=== PATIENT | male | born 1935 | race Caucasian/White ===

== ENCOUNTER 2019-12-01 16:19 | Emergency (ER) | payer MEDICARE ==
[~2019-12-01] VITALS: Ht 172.7 cm; Wt 72.6 kg
[~2019-12-01 16:19] MED LIST: ASPI325 PO; ASPI325EC PO; BRIM.15SO; CHOL10002 PO; CLOP75 PO; COMBIGAN BOTHEYES; CRO-MAN-ZIN TA1 EACH PO; CYCL10 PO; FISH1000 PO; GLIP5 PO; HYDACE5; HYDACE5 PO; INSU7030P SC; INSULANI SUBQ; INSULANPEN SC; ISOMON30 PO; LATA.005SO LEFTEYE; LATA.005SO OD; LATA.005SO OP; LISI20 PO; METF500 PO; METO50 PO; METO50ER PO; MULVITMIND PO; NITRSPRAY SL; Norco 5-325 Ta1 EACH PO; PRODEXEL PO; RXCYCL10 PO; RXHYDACE PO; SIMV10 PO; TAMS.4ER PO; TIMO.25OPS OD; TIMO.25OPS OP; Zithromax250 MG PO; [UNRECOGNIZED DRUG - OTHER]; [UNRECOGNIZED DRUG - OTHER]
[2019-12-01 16:48] LABS: BASOPHILS ABSOLUTE AUTO 0.02 K/mm3 (0.00-0.23); BASOPHILS PERCENT AUTO 0 % (0-2); EOSINOPHILS ABSOLUTE AUTO 0.07 K/mm3 (0.00-0.68); EOSINOPHILS PERCENT AUTO 1 % (0-6); Hematocrit 44.6 % (37.0-53.0); IMMATURE GRAN ABSOLUTE AUTO 0.16 K/mm3 (0.00-0.10); IMMATURE GRAN PERCENT AUTO 2 % (0-1); LYMPHOCYTES ABSOLUTE AUTO 1.29 K/mm3 (0.84-5.20); LYMPHOCYTES PERCENT AUTO 15 % (21-46); MONOCYTES ABSOLUTE AUTO 0.47 K/mm3 (0.16-1.47); MONOCYTES PERCENT AUTO 6 % (4-13); Mean Corpuscular HGB 30.4 pg (26.0-34.0); Mean Corpuscular HGB Conc 33.6 g/dL (31.5-36.5); Mean Corpuscular Volume 90 fL (80-100); Mean Platelet Volume 10.1 fL (9.1-12.4); NEUTROPHILS ABSOLUTE AUTO 6.58 K/mm3 (1.96-9.15); NEUTROPHILS PERCENT AUTO 77 % (41-73); Platelet Count 172 K/mm3 (150-400); RDW Coefficient Variation 12.5 % (11.7-14.2); RDW Standard Deviation 41.1 fL (35.1-46.3); Red Blood Cell Count 4.94 M/mm3 (4.30-5.90); White Blood Cell Count 8.59 K/mm3 (4.00-11.30)
[2019-12-01 17:15] LABS: Alanine Aminotransfer (ALT/SGP 25 U/L (12-78); Albumin, Blood 3.6 g/dL (3.4-5.0); Albumin/Globulin Ratio 0.9 (0.8-1.8); Alk Phos 64 U/L (50-136); Anion Gap 3 mmol/L (6-16); Aspartate Aminotrans (AST/SGOT 28 U/L (12-37); Bilirubin, Total 0.4 mg/dL (0.1-1.0); Blood Urea Nitrogen 33 mg/dL (8-24); Bun/Creatinine Ratio 20.8 (12.0-20.0); CO2, Blood 26 mmol/L (21-32); Calcium, Blood 8.7 mg/dL (8.5-10.1); Chloride, Blood 109 mmol/L (98-108); Creatinine, Blood 1.59 mg/dL (0.60-1.20); Globulin, Blood 3.9 g/dL (2.2-4.0); Glomerular Filtration Rate 45 (60-); Glucose, Blood 277 mg/dL (70-99); Potassium, Blood 4.6 mmol/L (3.5-5.5); Sodium, Blood 138 mmol/L (136-145); Total Protein, Blood 7.5 g/dL (6.4-8.2); Troponin I <0.015 ng/mL (0.000-0.040)
[2019-12-01] MEDS ORDERED: Aspir 8181 MG PO (19:48)
[2019-12-01] MEDS ORDERED: CLON.1 (19:49)
[2019-12-01] MEDS ORDERED: Isosorbide Mono30 MG PO (19:49)
[2019-12-01] MEDS ORDERED: Humalog Mi100 UNIT/4 SC (19:50)
[2019-12-01] MEDS ORDERED: CALCIUM 600 +1 EA11 PO (19:53)
[2019-12-01] MEDS ORDERED: Roxicodone5 MG PO (21:12)
== END 2019-12-01 21:30 | disposition home or self-care (01) ==
LOC: ER 16:19
PROVIDERS: Physician Assistant
DX: S22.42XA Multiple fractures of ribs, left side, initial encounter for closed fracture (principal); E11.9 Type 2 diabetes mellitus without complications; Z88.5 Allergy status to narcotic agent; Z88.8 Allergy status to other drugs, medicaments and biological substances; Z79.82 Long term (current) use of aspirin; Z79.899 Other long term (current) drug therapy; W55.12XA Struck by horse, initial encounter
CPT/HCPCS: 36415; 71046; 71260; 74177; 80053; 84484; 85025; 93005; 93010; 96374; 96375; 99284-25; A9270; J1170; J3010; Q9967

== ENCOUNTER 2021-11-28 19:50 | Inpatient (IN) | payer MEDICARE ==
[~2021-11-28] VITALS: Ht 172.7 cm; Wt 74.2 kg
[~2021-11-28 19:50] MED LIST changes: +Aspir 8181 MG PO; +CALCIUM 600 +1 EA11 PO; +CLON.1 PO; +Humalog Mi100 UNIT/4 SC; +ISODIN10 PO; +Roxicodone5 MG PO
[2021-11-28] MEDS ORDERED: TRESIBA FL100 UNIT/2 SC (20:23)
[2021-11-28] MEDS ORDERED: HUMALOG KW100 UNIT/1 SC (20:23)
[2021-11-28] MEDS ORDERED: FERREX 150150 M1 PO (20:25)
[2021-11-28 20:53] LABS: BASOPHILS ABSOLUTE AUTO 0.03 K/mm3 (0.00-0.23); BASOPHILS PERCENT AUTO 0 % (0-2); EOSINOPHILS ABSOLUTE AUTO 0.06 K/mm3 (0.00-0.68); EOSINOPHILS PERCENT AUTO 1 % (0-6); Hemoglobin 14.8 g/dL (13.5-17.5); IMMATURE GRAN ABSOLUTE AUTO 0.07 K/mm3 (0.00-0.10); IMMATURE GRAN PERCENT AUTO 1 % (0-1); LYMPHOCYTES ABSOLUTE AUTO 1.69 K/mm3 (0.84-5.20); LYMPHOCYTES PERCENT AUTO 23 % (21-46); MONOCYTES ABSOLUTE AUTO 0.57 K/mm3 (0.16-1.47); MONOCYTES PERCENT AUTO 8 % (4-13); Mean Corpuscular HGB 30.6 pg (26.0-34.0); Mean Corpuscular HGB Conc 34.4 g/dL (31.5-36.5); Mean Corpuscular Volume 89 fL (80-100); Mean Platelet Volume 10.2 fL (9.1-12.4); NEUTROPHILS PERCENT AUTO 67 % (41-73); Platelet Count 175 K/mm3 (150-400); RDW Coefficient Variation 12.5 % (11.7-14.2); RDW Standard Deviation 40.9 fL (35.1-46.3); Red Blood Cell Count 4.84 M/mm3 (4.30-5.90); White Blood Cell Count 7.22 K/mm3 (4.00-11.30)
[2021-11-28 21:00] LABS: International Normalized Ratio 0.96; Prothrombin Time Results 10.1 Sec (9.7-11.5)
[2021-11-28 21:02] LABS: Albumin, Blood 3.3 g/dL (3.4-5.0); Albumin/Globulin Ratio 0.9 (0.8-1.8); Bilirubin, Total 0.3 mg/dL (0.1-1.0); Bun/Creatinine Ratio 13.7 (12.0-20.0); Calcium, Blood 8.5 mg/dL (8.5-10.1); Creatinine, Blood 1.75 mg/dL (0.60-1.20); Globulin, Blood 3.7 g/dL (2.2-4.0); Potassium, Blood 4.1 mmol/L (3.5-5.5)
--- NOTE | 2021-11-28 22:40 | NUR ---
TRANSFER NOTE REPORT FROM ATIYA FERGUSON RN. PT TO FLOOR BY WC AND STANDS TO TRANSFER TO BED. GAIT STEADY. STANDING WEIGHT OBTAINED. PT GRANDDAUGHTER WITH HIM TO PROVIDE ADMISSION HX. PT'S DAUGHTER, WHO MAKES HEALTHCARE DECISIONS, WILL BE STAYING WITH HIM. PT AND DAUGHTER ORIENTED TO ROOM AND CALL LIGHT. BED IN LOWEST POSITION. CALL LIGHT IN REACH.
[2021-11-28] MEDS ORDERED: Amlodipine Bes2.5 MG PO (23:04)
[2021-11-29 03:12] LABS: Source, Urine Clean Catch
[2021-11-29 03:21] LABS: Appearance, Urine Clear (Clear); Bilirubin, Urine Neg (Neg); Blood, Urine Neg (Neg); Color, Urine Yellow (P-Yellow); Glucose Qualitative, Urine 2+ (Neg); Ketones, Urine Neg (Neg); Leukocyte Esterase, Urine Neg (Neg); Nitrite, Urine Neg (Neg); Protein, Urine 1+ (Neg); Urobilinogen, Urine NORM (Normal)
--- NOTE | 2021-11-29 05:21 | NUR ---
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 PT IS ALERT AND ORIENTED TO SELF, SITUATION, SURROUNDINGS, AND FAMILY BUT UNSURE OF YEAR. PLEASANT AND COOPERATIVE WITH CARE. FORGETFUL AT TIMES. NO COMPLAINTS OF HEADACHE OR CHEST PAIN. PT BP SLIGHTLY ELEVATED AT 172/76 - ASYMPTOMATIC. PT STEADY ON FEET WITH NO LOWER EXTREMITY WEAKNESS. BP IMPROVED TO 150/67 THIS AM. PT STARTED ON ASPIRIN, PLAVIX, AND LOVENOX THIS SHIFT. NO OTHER CONCERNS THIS SHIFT.
[2021-11-29 05:23] LABS: BASOPHILS ABSOLUTE AUTO 0.03 K/mm3 (0.00-0.23); BASOPHILS PERCENT AUTO 0 % (0-2); EOSINOPHILS ABSOLUTE AUTO 0.12 K/mm3 (0.00-0.68); EOSINOPHILS PERCENT AUTO 2 % (0-6); Hematocrit 41.3 % (37.0-53.0); Hemoglobin 14.1 g/dL (13.5-17.5); IMMATURE GRAN ABSOLUTE AUTO 0.04 K/mm3 (0.00-0.10); IMMATURE GRAN PERCENT AUTO 1 % (0-1); LYMPHOCYTES ABSOLUTE AUTO 1.48 K/mm3 (0.84-5.20); LYMPHOCYTES PERCENT AUTO 22 % (21-46); MONOCYTES ABSOLUTE AUTO 0.62 K/mm3 (0.16-1.47); MONOCYTES PERCENT AUTO 9 % (4-13); Mean Corpuscular HGB 30.6 pg (26.0-34.0); Mean Corpuscular HGB Conc 34.1 g/dL (31.5-36.5); Mean Corpuscular Volume 90 fL (80-100); Mean Platelet Volume 9.8 fL (9.1-12.4); NEUTROPHILS ABSOLUTE AUTO 4.49 K/mm3 (1.96-9.15); NEUTROPHILS PERCENT AUTO 66 % (41-73); Platelet Count 162 K/mm3 (150-400); RDW Coefficient Variation 12.5 % (11.7-14.2); RDW Standard Deviation 40.9 fL (35.1-46.3); Red Blood Cell Count 4.61 M/mm3 (4.30-5.90); White Blood Cell Count 6.78 K/mm3 (4.00-11.30)
[2021-11-29 05:51] LABS: Albumin, Blood 3.1 g/dL (3.4-5.0); Albumin/Globulin Ratio 0.9 (0.8-1.8); Bilirubin, Total 0.4 mg/dL (0.1-1.0); Bun/Creatinine Ratio 14.6 (12.0-20.0); Calcium, Blood 8.3 mg/dL (8.5-10.1); Creatinine, Blood 1.71 mg/dL (0.60-1.20); Globulin, Blood 3.3 g/dL (2.2-4.0); Potassium, Blood 4.2 mmol/L (3.5-5.5); Total Protein, Blood 6.4 g/dL (6.4-8.2)
--- NOTE | 2021-11-29 18:53 | NUR ---
SHIFT SUMMARY PT ADMITTED FOR R HAND WEAKNESS THAT HAS GREATLY IMPROVED THIS SHIFT. PT NOW HAS NEARLY EQUAL STRENGTH IN HIS HANDS. HE IS FORGETFUL BUT PLEASANT. FRACTIONATION SUPERVISOR IN ROOM TO HELP MAKE MEDICAL DECISIONS. PT TO HAVE MRI. PT WAS BRADYCARDIC THIS AM BUT HAS SINCE IMPROVED. ELEVATED T-WAVES APPEARED THIS AFTERNOON ON TELEMETRY. EKG DONE AND SHOWED NORMAL SINUS WITH SEPTAL INFARCT OF UNKNOWN AGE. PT DENIES CHEST PAIN/PRESSURE/PALPITATIONS. WORKED WITH P.T/O.T. AND DID WELL. VSS.
--- NOTE | 2021-11-30 08:38 | NUR ---
SUMMARY PT REPORTS R HAND AND ARM CONTINUE TO IMPROVE IN SENSATION AND STRENGTH. DAUGHTER REMAINS AT BEDSIDE AND IS VWERY HELPFUL TO PT,STAFF, AND IS SUPPORTIVE OF CARE PROVIDED.
[2021-11-30] MEDS ORDERED: ZOCOR20 MG PO (15:56)
[2021-11-30] MEDS ORDERED: CLOP75 PO (15:57)
--- NOTE | 2021-11-30 17:39 | NUR ---
DISCHARGE SUMMARY PT AxOx4 WITH INTERM CONFUSION AND VERY [place]. PATIENT AND HIS DAUGHTER, PRISCILLA IN ROOM. PT HAD SHOWER THIS AM. DENIES ANY PAIN. PER TASSEL CLIPPER, TELE RUNNING SR 68. PT WENT FOR MRI HEAD TODAY. VITALS REVIEWED. PT DC'ING TO HOME WITH DAUGHTER AND HOME HEALTH. DC INSTRUCTIONS DISCUSSED INCLUDING DC MED LIST, FOLLOW UP APPTS AND HH REFERRAL. PT AND DAUGHTER VERBALIZE UNDERSTANDING. DENIES FURTHER QUESTIONS AT THIS TIME. PT SAFELY ESCORTED OUT VIA WC WITH DENTAL AMALGAM PROCESSOR AND DAUGHTER.
--- NOTE | 2021-12-03 11:40 | NUR ---
Received referral from nurse healthcare associate (Rafi Gomez) today- 12/03/2021. Patient was admitted to [facility] on 11/28/2021 due to stroke/limb ataxia. Patient discharged over the weekend- 11/30/2021 with orders for home health. Per referral today, patient elected [facility]. As patient discharged over the weekend, this copy writer did not contact patient at home to confirm the above. All supporting documentation for referral (face sheet, face to face, med list, H&P, discharge summary, and most recent PT notes) was sent to [facility] for review. No further interventions required. Magi Lopez Referral Liaison
== END 2021-11-30 17:27 | disposition home or self-care (01) | DRG 65 ==
LOC: ER 19:50 → MEDS 19:51 → ER 22:09 → MEDS 22:09
PROVIDERS: Physician Assistant; Student in an Organized Health Care Education/Training Program; ADMIT Internal Medicine
DX: I63.9 Cerebral infarction, unspecified (principal); G81.91 Hemiplegia, unspecified affecting right dominant side; I10 Essential (primary) hypertension; E78.5 Hyperlipidemia, unspecified; Z85.46 Personal history of malignant neoplasm of prostate; Z85.038 Personal history of other malignant neoplasm of large intestine; Z79.899 Other long term (current) drug therapy; Z88.8 Allergy status to other drugs, medicaments and biological substances; Z88.5 Allergy status to narcotic agent; I65.02 Occlusion and stenosis of left vertebral artery
CPT/HCPCS: 36415; 70450; 70496; 70498; 70551; 80053; 82947; 85025; 85610; 85730; 93005; 93010; 93306; 96372; 97110; 97162; 99285-25; A9270; G0378; J1650; J7030; Q9967

== ENCOUNTER → 2021-12-04 | Outpatient (CLI) | payer MEDICARE ==
[~2021-12-04] MED LIST changes: +Amlodipine Bes2.5 MG PO; +FERREX 150150 M1 PO; +HUMALOG KW100 UNIT/1 SC; +TRESIBA FL100 UNIT/2 SC; +ZOCOR20 MG PO
[2021-12-04 19:33] LABS: Creatinine Urine 86.2 mg/dL (27.00-270.00); Protein, Urine Quantitative 19.6 mg/dL (0.0-11.9)
== END | disposition home or self-care (01) ==
LOC: LAB SHORT 17:11
PROVIDERS: Internal Medicine Nephrology
DX: N18.4 Chronic kidney disease, stage 4 (severe) (principal); D63.1 Anemia in chronic kidney disease; N25.81 Secondary hyperparathyroidism of renal origin; E55.9 Vitamin D deficiency, unspecified; E78.00 Pure hypercholesterolemia, unspecified; R76.9 Abnormal immunological finding in serum, unspecified; R94.5 Abnormal results of liver function studies; R94.6 Abnormal results of thyroid function studies
CPT/HCPCS: 81050; 82108; 82570; 84156

== ENCOUNTER 2021-12-10 19:48 | Inpatient (IN) | payer MEDICARE ==
[~2021-12-10] VITALS: Ht 180.3 cm; Wt 95.2 kg
[2021-12-10 20:41] LABS: BASOPHILS ABSOLUTE AUTO 0.02 K/mm3 (0.00-0.23); BASOPHILS PERCENT AUTO 0 % (0-2); EOSINOPHILS ABSOLUTE AUTO 0.08 K/mm3 (0.00-0.68); EOSINOPHILS PERCENT AUTO 1 % (0-6); Hematocrit 44.2 % (37.0-53.0); Hemoglobin 15.2 g/dL (13.5-17.5); IMMATURE GRAN ABSOLUTE AUTO 0.04 K/mm3 (0.00-0.10); IMMATURE GRAN PERCENT AUTO 1 % (0-1); LYMPHOCYTES ABSOLUTE AUTO 1.37 K/mm3 (0.84-5.20); LYMPHOCYTES PERCENT AUTO 18 % (21-46); MONOCYTES ABSOLUTE AUTO 0.66 K/mm3 (0.16-1.47); MONOCYTES PERCENT AUTO 9 % (4-13); Mean Corpuscular HGB 30.6 pg (26.0-34.0); Mean Corpuscular HGB Conc 34.4 g/dL (31.5-36.5); Mean Corpuscular Volume 89 fL (80-100); Mean Platelet Volume 9.9 fL (9.1-12.4); NEUTROPHILS ABSOLUTE AUTO 5.38 K/mm3 (1.96-9.15); NEUTROPHILS PERCENT AUTO 71 % (41-73); Platelet Count 185 K/mm3 (150-400); RDW Coefficient Variation 12.6 % (11.7-14.2); RDW Standard Deviation 41.1 fL (35.1-46.3); Red Blood Cell Count 4.96 M/mm3 (4.30-5.90); White Blood Cell Count 7.55 K/mm3 (4.00-11.30)
[2021-12-10 20:59] LABS: Albumin, Blood 3.4 g/dL (3.4-5.0); Albumin/Globulin Ratio 0.8 (0.8-1.8); Bilirubin, Total 0.3 mg/dL (0.1-1.0); Bun/Creatinine Ratio 18.3 (12.0-20.0); Creatinine, Blood 1.86 mg/dL (0.60-1.20); Globulin, Blood 4.1 g/dL (2.2-4.0); Potassium, Blood 5.3 mmol/L (3.5-5.5); Total Protein, Blood 7.5 g/dL (6.4-8.2)
[2021-12-10 23:49] LABS: Base Excess Venous 1.4 mmol/L; Bicarbonate Venous 25.4 mmol/L (24.0-30.0); PCO2 Venous 40.8 mmHg (38-42); PO2 Venous 68.5 mmHg (38-42); pH Blood Venous 7.41 (7.34-7.37)
--- NOTE | 2021-12-11 02:27 | NUR ---
ADMISSION NOTE/SHIFT SUMMARY PATIENT ADMITTED ON MEDICAL UNIT AROUND 01:30 DAUGHTER BY THE BEDSIDE DURING ASSESSEMENT.PT AOX2 WITH FORGETFULLNESS COULD NOT REMEMBER HIS BIRTHDAY .SKIN INTACT LUNGS SOUND CLEAR DELFINO.ABD SOFT NONTENDER LAST BM 12/10/21.ASSIST WITH CARE DUE TO RIGHTSIDE WEAKNESS.
[2021-12-11 05:44] LABS: BASOPHILS ABSOLUTE AUTO 0.04 K/mm3 (0.00-0.23); BASOPHILS PERCENT AUTO 1 % (0-2); EOSINOPHILS PERCENT AUTO 2 % (0-6); Hematocrit 42.6 % (37.0-53.0); Hemoglobin 14.7 g/dL (13.5-17.5); IMMATURE GRAN ABSOLUTE AUTO 0.03 K/mm3 (0.00-0.10); IMMATURE GRAN PERCENT AUTO 1 % (0-1); LYMPHOCYTES ABSOLUTE AUTO 1.34 K/mm3 (0.84-5.20); LYMPHOCYTES PERCENT AUTO 21 % (21-46); MONOCYTES ABSOLUTE AUTO 0.55 K/mm3 (0.16-1.47); MONOCYTES PERCENT AUTO 9 % (4-13); Mean Corpuscular HGB 30.9 pg (26.0-34.0); Mean Corpuscular HGB Conc 34.5 g/dL (31.5-36.5); Mean Corpuscular Volume 90 fL (80-100); Mean Platelet Volume 9.7 fL (9.1-12.4); NEUTROPHILS ABSOLUTE AUTO 4.31 K/mm3 (1.96-9.15); NEUTROPHILS PERCENT AUTO 68 % (41-73); Platelet Count 161 K/mm3 (150-400); RDW Coefficient Variation 12.5 % (11.7-14.2); RDW Standard Deviation 41.3 fL (35.1-46.3); Red Blood Cell Count 4.75 M/mm3 (4.30-5.90); White Blood Cell Count 6.37 K/mm3 (4.00-11.30)
[2021-12-11 06:16] LABS: Bun/Creatinine Ratio 18.3 (12.0-20.0); Calcium, Blood 8.6 mg/dL (8.5-10.1); Creatinine, Blood 1.75 mg/dL (0.60-1.20); Potassium, Blood 4.8 mmol/L (3.5-5.5)
--- NOTE | 2021-12-11 08:01 | NUR ---
SUSAN wolfe handoff of patient care from SUSAN Braun Patient was in room awake, lying in bed. He did not have any requests
--- NOTE | 2021-12-11 18:01 | NUR ---
Patient was alert and orient. He was very pleasant and in good spirits. Physical/Occupational/Speech therapy worked with this patient this morning. He is assist of 1 with transers, continent of bowel and bladder and had 3 BMs today. Patient also had family in with him to ensure his safety. He was compliant with medications and he had no complaints of pain. He will be transferred soon to [facility] in [place] whenever there is a bed opened. Cont to monitor this patient
[2021-12-11 21:07] LABS: Adenovirus Not Detected (NOT DETECT); Coronavirus 229E Not Detected (NOT DETECT); Coronavirus HKU1 Not Detected (NOT DETECT)
[2021-12-11 21:08] LABS: Bordetella pertussis Not Detected (NOT DETECT); Chlamydophila pneumoniae Not Detected (NOT DETECT); Coronavirus NL63 Not Detected (NOT DETECT); Coronavirus OC43 Not Detected (NOT DETECT); Human Metapneumovirus Not Detected (NOT DETECT); Human Rhinovirus/Enterovirus Not Detected (NOT DETECT); Influenza A/2009-H1 Not Detected (NOT DETECT); Influenza A/H1 Not Detected (NOT DETECT); Influenza A/H3 Not Detected (NOT DETECT); Influenza B Not Detected (NOT DETECT); Mycoplasma pneumoniae Not Detected (NOT DETECT); Parainfluenza Virus 1 Not Detected (NOT DETECT); Parainfluenza Virus 2 Not Detected (NOT DETECT); Parainfluenza Virus 3 Not Detected (NOT DETECT); Parainfluenza Virus 4 Not Detected (NOT DETECT); Respiratory Syncytial Virus Not Detected (NOT DETECT); SARS-Cov-2 (COVID-19), BioFire Not Detected (NOT DETECT)
--- NOTE | 2021-12-11 21:23 | NUR ---
REGULAR COVID TEST NOT AVAILABLE TILL AM, RESPIRATORY PANEL DONE AND NEGATIVE COVID RESULTS FAXED TO [facility] [phone].
--- NOTE | 2021-12-12 05:50 | NUR ---
SHIFT SUMMARY PATIENT ALERT AND PLESANT ASSISTED TO THE BATHROOM SEVERAL TIMES ABLE TO WALK WITH ASSIST X1 WITH WALKER.PT WAITING TO BE TRANSFER TO [facility] NEGATIVE COVID TEST WAS FAX.DAUGHTER BY THE BED SIDE.BED ALARM ON FOR SAFETY
[2021-12-12 05:58] LABS: Albumin, Blood 3.1 g/dL (3.4-5.0); Anion Gap 6 mmol/L (6-16); Blood Urea Nitrogen 38 mg/dL (8-24); Bun/Creatinine Ratio 18.3 (12.0-20.0); CO2, Blood 26 mmol/L (21-32); Calcium, Blood 8.8 mg/dL (8.5-10.1); Chloride, Blood 104 mmol/L (98-108); Creatinine, Blood 2.08 mg/dL (0.60-1.20); Glomerular Filtration Rate 31 (60-); Glucose, Blood 209 mg/dL (70-99); Phosphorus, Blood 3.6 mg/dL (2.5-4.9); Potassium, Blood 5.4 mmol/L (3.5-5.5); Sodium, Blood 136 mmol/L (136-145)
--- NOTE | 2021-12-12 07:45 | NUR ---
SUSAN wolfe handoff of patient care from SUSAN Shanks Patient was in bed asleep, He did not appear to be in any distress. Family was at bedside
--- NOTE | 2021-12-12 18:01 | NUR ---
Patient was alert and orient, He is assist x1 to bathroom, he was continent of bowel and bladder and had 2 med BM. Patient also worked with OT/PT. He had no complaints of pain. Family remained at bedside to assist. He will be transferring to [facility] in the next half hour.
--- NOTE | 2021-12-12 18:48 | NUR ---
RN called and talked to Dev RN at [facility] and gave report on patient's condition and current status prior to transferring.
--- NOTE | 2021-12-12 20:35 | NUR ---
PATIENT TAKEN BY TRANSPORT
== END 2021-12-12 20:30 | disposition short-term general hospital (02) | DRG 65 ==
LOC: ER 19:48 → MEDS 19:49
PROVIDERS: Emergency Medicine; Internal Medicine; Physician Assistant; Student in an Organized Health Care Education/Training Program; ADMIT Family Medicine
DX: I63.9 Cerebral infarction, unspecified (principal); N17.9 Acute kidney failure, unspecified; G81.91 Hemiplegia, unspecified affecting right dominant side; E11.22 Type 2 diabetes mellitus with diabetic chronic kidney disease; E78.5 Hyperlipidemia, unspecified; I12.9 Hypertensive chronic kidney disease with stage 1 through stage 4 chronic kidney disease, or unspecified chronic kidney disease; Z88.5 Allergy status to narcotic agent; Z85.46 Personal history of malignant neoplasm of prostate; Z85.038 Personal history of other malignant neoplasm of large intestine; R29.810 Facial weakness; I65.23 Occlusion and stenosis of bilateral carotid arteries; I65.03 Occlusion and stenosis of bilateral vertebral arteries; Z20.822 Contact with and (suspected) exposure to COVID-19; Z88.8 Allergy status to other drugs, medicaments and biological substances; Z79.899 Other long term (current) drug therapy; Z79.82 Long term (current) use of aspirin; N18.9 Chronic kidney disease, unspecified
CPT/HCPCS: 0202U; 36415; 70450; 70496; 70498; 80048; 80053; 80069; 82803; 82947; 83036; 85025; 92610; 93005; 93010; 97110; 97162; 97166; 97530; 97535; 99285-25; A9270; J1650; J1815; Q9967

== ENCOUNTER 2022-10-16 12:58 | Emergency (ER) | payer MEDICARE, OTHER ==
[~2022-10-16] VITALS: Ht 172.7 cm; Wt 74.8 kg
[2022-10-16 14:08] LABS: Base Excess Venous -0.8 mmol/L; Bicarbonate Venous 22.7 mmol/L (24.0-30.0); PCO2 Venous 50.8 mmHg (38-42); pH Blood Venous 7.31 (7.34-7.37)
[2022-10-16 14:18] LABS: BASOPHILS ABSOLUTE AUTO 0.04 K/mm3 (0.00-0.23); BASOPHILS PERCENT AUTO 1 % (0-2); EOSINOPHILS ABSOLUTE AUTO 0.15 K/mm3 (0.00-0.68); EOSINOPHILS PERCENT AUTO 2 % (0-6); Hematocrit 42.1 % (37.0-53.0); Hemoglobin 13.9 g/dL (13.5-17.5); IMMATURE GRAN PERCENT AUTO 1 % (0-1); LYMPHOCYTES ABSOLUTE AUTO 1.73 K/mm3 (0.84-5.20); LYMPHOCYTES PERCENT AUTO 22 % (21-46); MONOCYTES PERCENT AUTO 9 % (4-13); Mean Corpuscular HGB 29.7 pg (26.0-34.0); Mean Corpuscular Volume 90 fL (80-100); NEUTROPHILS ABSOLUTE AUTO 5.07 K/mm3 (1.96-9.15); NEUTROPHILS PERCENT AUTO 65 % (41-73); Platelet Count 186 K/mm3 (150-400); RDW Coefficient Variation 13.1 % (11.7-14.2); RDW Standard Deviation 42.7 fL (35.1-46.3); Red Blood Cell Count 4.68 M/mm3 (4.30-5.90); White Blood Cell Count 7.79 K/mm3 (4.00-11.30)
[2022-10-16 14:27] LABS: Albumin, Blood 3.2 g/dL (3.4-5.0); Albumin/Globulin Ratio 0.9 (0.8-1.8); Bilirubin, Total 0.3 mg/dL (0.1-1.0); Bun/Creatinine Ratio 25.7 (12.0-20.0); Calcium, Blood 8.6 mg/dL (8.5-10.1); Creatinine, Blood 1.52 mg/dL (0.60-1.20); Globulin, Blood 3.6 g/dL (2.2-4.0); Potassium, Blood 4.2 mmol/L (3.5-5.5); Total Protein, Blood 6.8 g/dL (6.4-8.2)
== END 2022-10-16 17:33 | disposition home or self-care (01) ==
LOC: ER 12:58
PROVIDERS: Physician Assistant
DX: E11.65 Type 2 diabetes mellitus with hyperglycemia (principal); E11.10 Type 2 diabetes mellitus with ketoacidosis without coma; Z88.5 Allergy status to narcotic agent; Z88.8 Allergy status to other drugs, medicaments and biological substances; Z79.4 Long term (current) use of insulin; Z79.82 Long term (current) use of aspirin
CPT/HCPCS: 36415; 80053; 82803; 82947; 85025

== ENCOUNTER 2023-08-08 14:23 | Emergency (ER) | payer MEDICARE, OTHER ==
[~2023-08-08] VITALS: Ht 172.7 cm; Wt 74.8 kg
[2023-08-08] MEDS ORDERED: ATOR10 (14:39)
[2023-08-08] MEDS ORDERED: FURO80 (14:39)
[2023-08-08] MEDS ORDERED: Amaryl1 MG PO (14:40)
[2023-08-08] MEDS ORDERED: ALBU2.5V5 (14:40)
[2023-08-08] MEDS ORDERED: TAMS.4ER (14:40)
[2023-08-08 14:47] LABS: BASOPHILS ABSOLUTE AUTO 0.03 K/mm3 (0.00-0.23); BASOPHILS PERCENT AUTO 1 % (0-2); EOSINOPHILS ABSOLUTE AUTO 0.16 K/mm3 (0.00-0.68); EOSINOPHILS PERCENT AUTO 2 % (0-6); Hematocrit 40.7 % (37.0-53.0); Hemoglobin 14.1 g/dL (13.5-17.5); IMMATURE GRAN ABSOLUTE AUTO 0.05 K/mm3 (0.00-0.10); IMMATURE GRAN PERCENT AUTO 1 % (0-1); LYMPHOCYTES ABSOLUTE AUTO 1.82 K/mm3 (0.84-5.20); LYMPHOCYTES PERCENT AUTO 28 % (21-46); MONOCYTES ABSOLUTE AUTO 0.49 K/mm3 (0.16-1.47); MONOCYTES PERCENT AUTO 7 % (4-13); Mean Corpuscular HGB 29.6 pg (26.0-34.0); Mean Corpuscular HGB Conc 34.6 g/dL (31.5-36.5); Mean Corpuscular Volume 85 fL (80-100); Mean Platelet Volume 9.4 fL (9.1-12.4); NEUTROPHILS ABSOLUTE AUTO 4.04 K/mm3 (1.96-9.15); NEUTROPHILS PERCENT AUTO 61 % (41-73); Platelet Count 221 K/mm3 (150-400); RDW Coefficient Variation 13.4 % (11.7-14.2); RDW Standard Deviation 41.4 fL (35.1-46.3); Red Blood Cell Count 4.77 M/mm3 (4.30-5.90); White Blood Cell Count 6.59 K/mm3 (4.00-11.30)
[2023-08-08 15:07] LABS: Albumin, Blood 3.1 g/dL (3.4-5.0); Albumin/Globulin Ratio 0.7 (0.8-1.8); Bilirubin, Total 0.4 mg/dL (0.1-1.0); Calcium, Blood 8.8 mg/dL (8.5-10.1); Creatinine, Blood 1.43 mg/dL (0.60-1.20); Globulin, Blood 4.2 g/dL (2.2-4.0); Potassium, Blood 3.9 mmol/L (3.5-5.5); Total Protein, Blood 7.3 g/dL (6.4-8.2)
[2023-08-08 15:08] LABS: International Normalized Ratio 0.98; Prothrombin Time Results 10.3 Sec (9.7-11.5)
[2023-08-08] MEDS ORDERED: HYDACE25S PR (16:42)
[2023-08-08 17:00] VITALS: BP 144/75
== END 2023-08-08 16:42 | disposition home or self-care (01) ==
LOC: ER 14:23
PROVIDERS: Emergency Medicine
DX: K62.5 Hemorrhage of anus and rectum (principal); K64.8 Other hemorrhoids; Z88.8 Allergy status to other drugs, medicaments and biological substances; Z88.5 Allergy status to narcotic agent; Z79.899 Other long term (current) drug therapy; Z79.82 Long term (current) use of aspirin; Z79.4 Long term (current) use of insulin; E11.9 Type 2 diabetes mellitus without complications
CPT/HCPCS: 74177; 80053; 85025; 85610; 85730; 86850; 86900; 86901; 93005; 93010; 99284-25; Q9967

== ENCOUNTER 2023-11-29 12:32 | Emergency (ER) | payer MEDICARE, OTHER ==
[~2023-11-29] VITALS: Ht 175.3 cm; Wt 72.6 kg
[~2023-11-29 12:32] MED LIST changes: +ALBU2.5V5; +ATOR10; +Amaryl1 MG PO; +FURO80; +HYDACE25S PR; +TAMS.4ER
[2023-11-29 13:56] LABS: BASOPHILS ABSOLUTE AUTO 0.02 K/mm3 (0.00-0.23); BASOPHILS PERCENT AUTO 0 % (0-2); EOSINOPHILS ABSOLUTE AUTO 0.13 K/mm3 (0.00-0.68); EOSINOPHILS PERCENT AUTO 2 % (0-6); Hematocrit 37.7 % (37.0-53.0); Hemoglobin 13.1 g/dL (13.5-17.5); IMMATURE GRAN ABSOLUTE AUTO 0.03 K/mm3 (0.00-0.10); IMMATURE GRAN PERCENT AUTO 0 % (0-1); LYMPHOCYTES ABSOLUTE AUTO 1.39 K/mm3 (0.84-5.20); LYMPHOCYTES PERCENT AUTO 18 % (21-46); MONOCYTES ABSOLUTE AUTO 0.53 K/mm3 (0.16-1.47); MONOCYTES PERCENT AUTO 7 % (4-13); Mean Corpuscular HGB 29.7 pg (26.0-34.0); Mean Corpuscular HGB Conc 34.7 g/dL (31.5-36.5); Mean Corpuscular Volume 86 fL (80-100); Mean Platelet Volume 9.8 fL (9.1-12.4); NEUTROPHILS PERCENT AUTO 72 % (41-73); Platelet Count 201 K/mm3 (150-400); RDW Coefficient Variation 13.2 % (11.7-14.2); RDW Standard Deviation 41.2 fL (35.1-46.3); Red Blood Cell Count 4.41 M/mm3 (4.30-5.90)
[2023-11-29 14:04] LABS: Source, Urine Clean Catch
[2023-11-29 14:33] LABS: Albumin, Blood 3.1 g/dL (3.4-5.0); Albumin/Globulin Ratio 0.8 (0.8-1.8); Bilirubin, Total 0.5 mg/dL (0.1-1.0); Bun/Creatinine Ratio 17.4 (12.0-20.0); Calcium, Blood 8.8 mg/dL (8.5-10.1); Creatinine, Blood 1.44 mg/dL (0.60-1.20); Potassium, Blood 4.1 mmol/L (3.5-5.5); Total Protein, Blood 7.1 g/dL (6.4-8.2)
[2023-11-29 14:48] LABS: Appearance, Urine Clear (Clear); Bilirubin, Urine Neg (Neg); Blood, Urine Neg (Neg); Color, Urine Yellow (P-Yellow); Glucose Qualitative, Urine 4+ (Neg); Ketones, Urine Neg (Neg); Leukocyte Esterase, Urine Neg (Neg); Nitrite, Urine Neg (Neg); Protein, Urine 2+ (Neg); Urobilinogen, Urine NORM (Normal)
[2023-11-29 15:10] LABS: Bacteria Rare /hpf; Red Blood Cells, Urine 0-2 /hpf (0-2); Squamous Epithelial Cells Rare /hpf (Few); White Blood Cells, Urine 0-2 /hpf (0-5)
[2023-11-29 15:52] VITALS: BP 117/55
== END 2023-11-29 18:45 | disposition home or self-care (01) ==
LOC: ER 12:32
PROVIDERS: Student in an Organized Health Care Education/Training Program
DX: R53.1 Weakness (principal); K62.5 Hemorrhage of anus and rectum; E11.22 Type 2 diabetes mellitus with diabetic chronic kidney disease; N18.9 Chronic kidney disease, unspecified; H40.9 Unspecified glaucoma; Z88.8 Allergy status to other drugs, medicaments and biological substances; Z88.5 Allergy status to narcotic agent; Z87.19 Personal history of other diseases of the digestive system; Z79.82 Long term (current) use of aspirin; Z79.51 Long term (current) use of inhaled steroids; Z79.84 Long term (current) use of oral hypoglycemic drugs; Z79.4 Long term (current) use of insulin; Z79.899 Other long term (current) drug therapy; Z79.02 Long term (current) use of antithrombotics/antiplatelets
CPT/HCPCS: 70450; 80053; 81001; 85025; 86850; 86900; 86901; 93005; 93010; 99284-25

== ENCOUNTER 2024-03-15 13:01 | Emergency (ER) | payer OTHER, MEDICARE ==
[~2024-03-15] VITALS: Ht 175.3 cm; Wt 72.1 kg
[~2024-03-15 13:01] MED LIST changes: -FURO80; +FURO80 PO
[2024-03-15] MEDS ORDERED: NITR.4SL SL (13:25)
[2024-03-15 13:43] LABS: BASOPHILS ABSOLUTE AUTO 0.02 K/mm3 (0.00-0.23); BASOPHILS PERCENT AUTO 0 % (0-2); EOSINOPHILS ABSOLUTE AUTO 0.08 K/mm3 (0.00-0.68); EOSINOPHILS PERCENT AUTO 1 % (0-6); Hematocrit 42.8 % (37.0-53.0); Hemoglobin 14.8 g/dL (13.5-17.5); IMMATURE GRAN ABSOLUTE AUTO 0.03 K/mm3 (0.00-0.10); IMMATURE GRAN PERCENT AUTO 1 % (0-1); LYMPHOCYTES ABSOLUTE AUTO 1.64 K/mm3 (0.84-5.20); LYMPHOCYTES PERCENT AUTO 25 % (21-46); MONOCYTES ABSOLUTE AUTO 0.48 K/mm3 (0.16-1.47); MONOCYTES PERCENT AUTO 7 % (4-13); Mean Corpuscular HGB 29.6 pg (26.0-34.0); Mean Corpuscular HGB Conc 34.6 g/dL (31.5-36.5); Mean Corpuscular Volume 86 fL (80-100); Mean Platelet Volume 9.6 fL (9.1-12.4); NEUTROPHILS ABSOLUTE AUTO 4.38 K/mm3 (1.96-9.15); NEUTROPHILS PERCENT AUTO 66 % (41-73); Platelet Count 186 K/mm3 (150-400); RDW Coefficient Variation 13.5 % (11.7-14.2); RDW Standard Deviation 42.3 fL (35.1-46.3); White Blood Cell Count 6.63 K/mm3 (4.00-11.30)
[2024-03-15 13:54] LABS: Albumin, Blood 3.2 g/dL (3.4-5.0); Albumin/Globulin Ratio 0.8 (0.8-1.8); Bilirubin, Total 0.3 mg/dL (0.1-1.0); Bun/Creatinine Ratio 16.6 (12.0-20.0); Calcium, Blood 8.9 mg/dL (8.5-10.1); Creatinine, Blood 1.51 mg/dL (0.60-1.20); Potassium, Blood 4.2 mmol/L (3.5-5.5); Total Protein, Blood 7.2 g/dL (6.4-8.2)
[2024-03-15 15:15] LABS: Source, Urine Voided
[2024-03-15 15:33] LABS: Appearance, Urine Clear (Clear); Bilirubin, Urine Neg (Neg); Blood, Urine 1+ (Neg); Color, Urine Yellow (P-Yellow); Glucose Qualitative, Urine 4+ (Neg); Ketones, Urine Neg (Neg); Leukocyte Esterase, Urine Neg (Neg); Nitrite, Urine Neg (Neg); Protein, Urine 3+ (Neg); Specific Gravity, Urine 1.015 (1.003-1.022); Urobilinogen, Urine NORM (Normal)
[2024-03-15 15:44] LABS: Bacteria Rare /hpf; Squamous Epithelial Cells Rare /hpf (Few); White Blood Cells, Urine 0-2 /hpf (0-5)
[2024-03-15 15:57] LABS: Thyroid Stimulating Hormone 4.8 uIU/mL (0.360-4.800)
[2024-03-15 16:00] VITALS: BP 168/65
== END 2024-03-15 16:38 | disposition home or self-care (01) ==
LOC: ER 13:01
PROVIDERS: Emergency Medicine
DX: S00.83XA Contusion of other part of head, initial encounter (principal); R41.89 Other symptoms and signs involving cognitive functions and awareness; E11.9 Type 2 diabetes mellitus without complications; H40.9 Unspecified glaucoma; W18.11XA Fall from or off toilet without subsequent striking against object, initial encounter; Y92.89 Other specified places as the place of occurrence of the external cause; Z88.8 Allergy status to other drugs, medicaments and biological substances; Z88.5 Allergy status to narcotic agent; Z79.82 Long term (current) use of aspirin; Z79.4 Long term (current) use of insulin; Z79.51 Long term (current) use of inhaled steroids; Z79.899 Other long term (current) drug therapy; Z79.84 Long term (current) use of oral hypoglycemic drugs; Z79.02 Long term (current) use of antithrombotics/antiplatelets; Z86.73 Personal history of transient ischemic attack (TIA), and cerebral infarction without residual deficits
CPT/HCPCS: 70450; 80053; 81001; 84443; 85025; 93005; 93010; 99284-25

== ENCOUNTER 2024-04-29 20:51 | Emergency (ER) | payer MEDICARE, OTHER ==
[~2024-04-29] VITALS: Ht 172.7 cm; Wt 68.0 kg
[~2024-04-29 20:51] MED LIST changes: +NITR.4SL SL
[2024-04-29 21:27] LABS: BASOPHILS ABSOLUTE AUTO 0.03 K/mm3 (0.00-0.23); BASOPHILS PERCENT AUTO 0 % (0-2); EOSINOPHILS PERCENT AUTO 1 % (0-6); Hematocrit 35.9 % (37.0-53.0); Hemoglobin 12.3 g/dL (13.5-17.5); IMMATURE GRAN ABSOLUTE AUTO 0.04 K/mm3 (0.00-0.10); IMMATURE GRAN PERCENT AUTO 1 % (0-1); LYMPHOCYTES ABSOLUTE AUTO 1.68 K/mm3 (0.84-5.20); LYMPHOCYTES PERCENT AUTO 22 % (21-46); MONOCYTES ABSOLUTE AUTO 0.57 K/mm3 (0.16-1.47); MONOCYTES PERCENT AUTO 7 % (4-13); Mean Corpuscular HGB 29.9 pg (26.0-34.0); Mean Corpuscular HGB Conc 34.3 g/dL (31.5-36.5); Mean Corpuscular Volume 87 fL (80-100); NEUTROPHILS ABSOLUTE AUTO 5.39 K/mm3 (1.96-9.15); NEUTROPHILS PERCENT AUTO 69 % (41-73); Platelet Count 187 K/mm3 (150-400); RDW Coefficient Variation 13.7 % (11.7-14.2); RDW Standard Deviation 43.8 fL (35.1-46.3); Red Blood Cell Count 4.11 M/mm3 (4.30-5.90); White Blood Cell Count 7.81 K/mm3 (4.00-11.30)
[2024-04-29] MEDS ORDERED: NS 1,000 ML IV SCH (21:40)
[2024-04-29 21:42] LABS: Albumin/Globulin Ratio 0.9 (0.8-1.8); Bilirubin, Total 0.3 mg/dL (0.1-1.0); Bun/Creatinine Ratio 22.1 (12.0-20.0); Calcium, Blood 8.6 mg/dL (8.5-10.1); Creatinine, Blood 1.54 mg/dL (0.60-1.20); Globulin, Blood 3.4 g/dL (2.2-4.0); Potassium, Blood 4.6 mmol/L (3.5-5.5); Total Protein, Blood 6.4 g/dL (6.4-8.2)
[2024-04-29 22:48] LABS: International Normalized Ratio 1.02; Prothrombin Time Results 10.9 Sec (9.7-11.5)
[2024-04-29] MEDS ORDERED: Pantoprazole Sodium 40 MG Injection IV ONE (22:50)
[2024-04-30 00:45] VITALS: BP 157/62
== END 2024-04-30 03:12 | disposition short-term general hospital (02) ==
LOC: ER 20:51
PROVIDERS: Student in an Organized Health Care Education/Training Program
DX: K92.2 Gastrointestinal hemorrhage, unspecified (principal); D62 Acute posthemorrhagic anemia; Z88.8 Allergy status to other drugs, medicaments and biological substances; Z88.5 Allergy status to narcotic agent; Z79.899 Other long term (current) drug therapy; Z79.82 Long term (current) use of aspirin; Z79.4 Long term (current) use of insulin; E11.9 Type 2 diabetes mellitus without complications
CPT/HCPCS: 36430; 74174; 76377; 80053; 85025; 85610; 85730; 86850; 86900; 86901; 86923; 93005; 93010; 96361; 96374-59; 99285-25; C9113; J7030; P9016; Q9967

== ENCOUNTER 2025-03-22 13:51 | Emergency (ER) | payer MEDICARE, OTHER ==
[~2025-03-22] VITALS: Ht 175.3 cm; Wt 77.1 kg
[2025-03-22 21:00] VITALS: BP 153/79
== END 2025-03-22 21:53 | disposition home or self-care (01) ==
LOC: ER 13:51
DX: N39.0 Urinary tract infection, site not specified (principal); R31.9 Hematuria, unspecified; E11.9 Type 2 diabetes mellitus without complications; Z79.82 Long term (current) use of aspirin; Z79.4 Long term (current) use of insulin; Z79.02 Long term (current) use of antithrombotics/antiplatelets; Z79.899 Other long term (current) drug therapy; Z88.5 Allergy status to narcotic agent; Z88.8 Allergy status to other drugs, medicaments and biological substances

== ENCOUNTER → 2025-04-06 | Outpatient (CLI) | payer MEDICARE, OTHER ==
[~2025-04-06] MED LIST changes: +CEFP200 PO
== END ==
LOC: LAB SHORT 11:00 → LAB 11:00
DX: N39.0 Urinary tract infection, site not specified (principal)
CPT/HCPCS: 87077; 87086; 87186

== ENCOUNTER 2025-05-13 12:28 | Inpatient (IN) | payer MEDICARE, OTHER ==
[~2025-05-13] VITALS: Ht 172.7 cm; Wt 66.5 kg
[~2025-05-13 12:28] MED LIST changes: -ALBU2.5V5; +ALBU2.5V5 INH; -ATOR10; +ATOR10 PO; -TAMS.4ER
[2025-05-13 15:40] LABS: Source, Urine Condom Cath
[2025-05-13 15:46] LABS: Bilirubin, Urine Neg (Neg); Color, Urine Yellow (P-Yellow); Glucose Qualitative, Urine Neg (Neg); Ketones, Urine Neg (Neg); Leukocyte Esterase, Urine 3+ (Neg); Protein, Urine 4+ (Neg); Specific Gravity, Urine 1.020 (1.003-1.022); Urobilinogen, Urine NORM (Normal)
[2025-05-13 15:51] LABS: BASOPHILS ABSOLUTE AUTO 0.04 K/mm3 (0.00-0.23); BASOPHILS PERCENT AUTO 0 % (0-2); EOSINOPHILS ABSOLUTE AUTO 0.04 K/mm3 (0.00-0.68); EOSINOPHILS PERCENT AUTO 0 % (0-6); Hematocrit 36.2 % (37.0-53.0); Hemoglobin 12.1 g/dL (13.5-17.5); IMMATURE GRAN ABSOLUTE AUTO 0.07 K/mm3 (0.00-0.10); IMMATURE GRAN PERCENT AUTO 1 % (0-1); LYMPHOCYTES ABSOLUTE AUTO 1.07 K/mm3 (0.84-5.20); LYMPHOCYTES PERCENT AUTO 9 % (21-46); MONOCYTES ABSOLUTE AUTO 0.78 K/mm3 (0.16-1.47); MONOCYTES PERCENT AUTO 7 % (4-13); Mean Corpuscular HGB Conc 33.4 g/dL (31.5-36.5); Mean Corpuscular Volume 90 fL (80-100); NEUTROPHILS ABSOLUTE AUTO 9.96 K/mm3 (1.96-9.15); NEUTROPHILS PERCENT AUTO 83 % (41-73); NRBC ABSOLUTE 0.00 K/mm3 (0.00-0.02); NRBC Auto 0.0 /100 WBC (0.0-0.2); Platelet Count 216 K/mm3 (150-400); RDW Coefficient Variation 13.8 % (11.7-14.2); RDW Standard Deviation 45.6 fL (35.1-46.3)
[2025-05-13 15:53] LABS: White Blood Cells, Urine 50-100 /hpf (0-5)
[2025-05-13] MEDS ORDERED: Ondansetron HCl 2 MG / ML 2ML Vial IV ONE (16:10)
[2025-05-13] MEDS ORDERED: FentaNYL Citrate 50 MCG/ML 2 ML Injection IV ONE (16:10)
[2025-05-13 16:15] LABS: Alanine Aminotransfer (ALT/SGP 19.0 U/L (12-78); Albumin, Blood 2.4 g/dL (3.4-5.0); Albumin/Globulin Ratio 0.5 (0.8-1.8); Anion Gap 10.0 mmol/L (3-11); Aspartate Aminotrans (AST/SGOT 18.0 U/L (12-37); Bilirubin, Total 0.7 mg/dL (0.1-1.0); Blood Urea Nitrogen 45.0 mg/dL (8-24); CO2, Blood 24.0 mmol/L (21-32); Calcium, Blood 8.7 mg/dL (8.5-10.1); Chloride, Blood 108.0 mmol/L (98-108); Creatinine, Blood 2.25 mg/dL (0.60-1.20); Globulin, Blood 4.7 g/dL (2.2-4.0); Glucose, Blood 297.0 mg/dL (70-99); Potassium, Blood 4.2 mmol/L (3.5-5.5); Sodium, Blood 138.0 mmol/L (136-145); Total Protein, Blood 7.1 g/dL (6.4-8.2)
[2025-05-13] MEDS ORDERED: NS 1,000 ML IV SCH ×2 (16:30→18:15)
[2025-05-13] MEDS ORDERED: CefTRIAXone Sodium 1,000 MG in NS 100 ML IV ONE (16:40)
[2025-05-13] MEDS ORDERED: Ondansetron HCl 2 MG / ML 2ML Vial IV PRN (18:15)
[2025-05-13] MEDS ORDERED: OxyCODONE 5 mg/Acetamin 325 mg TABLET PO PRN (18:15)
--- NOTE | 2025-05-13 20:29 | NUR ---
RECEIVED REPORT FROM KERI ROSE ED RN.
--- NOTE | 2025-05-13 20:59 | NUR ---
PT ARRIVED TO 335 VIA ED KIA, FAMILY AT BEDSIDE. PT SLID FROM GURNEY TO BED. RESP EVEN ON RA. WILL PROVIDE CARE T/O SHIFT. CALL LT IN REACH.
[2025-05-13] MEDS ORDERED: Lactobacil 2-S.Thermo-Bifido 1 1 Cap PO SCH (21:00)
[2025-05-13] MEDS ORDERED: Heparin Sodium,Porcine 5,000 UNIT/0.5 ML SDV SC SCH (21:00)
[2025-05-13] MEDS ORDERED: Insulin Human Lispro 100 Units/ML 3ML Syringe SC SCH (21:00)
[2025-05-13 21:16] VITALS: BP 165/67
[2025-05-13] MEDS ORDERED: FURO20 PO (21:43)
--- NOTE | 2025-05-13 22:00 | NUR ---
HX OF STROKE WITH RIGHT SIDE DEFICITS, DYSPHAGIA, MILD R ARM CONTRACTURE NOTED. MUMBLED SPEECH. [place], WEARING BILAT HEARING AIDS. ON RA. MEDS ARE GIVEN CRUSHED IN APPLESAUCE, WITH HOB ELEVATED, PT TOLERATED WELL. TAKES FLUIDS WITH A STRAW WITHOUT DIFFICULTY. BED ALARM ON FOR PT SAFETY, CALL LT IN REACH OF PT'S FAMILY. CAREGIVER FAMILY MEMBER TO STAY THE NIGHT. CALL LT IN REACH.
[2025-05-13] MEDS ORDERED: Aspirin325 MG PO (22:27)
[2025-05-13] MEDS ORDERED: HYDHCL25 PO (22:29)
[2025-05-13] MEDS ORDERED: TRAZ50 PO (22:31)
[2025-05-13] MEDS ORDERED: OMEP20ER PO (22:31)
--- NOTE | 2025-05-14 00:35 | NUR ---
TRAZODONE 50MG TAB GIVEN CRUSHED IN APPLESAUCE, PT TOLERATED WELL. NO OTHER NEEDS. CALL LT IN REACH.
--- NOTE | 2025-05-14 01:30 | NUR ---
PT RESTING QUIETLY WITH EYES CLOSED, RESP E/U ON RA. NO NEEDS AT THIS TIME. CALL LT IN REACH.
--- NOTE | 2025-05-14 03:11 | NUR ---
MEDICATED PT FOR 8/10 PAIN, MED CRUSHED IN APPLESAUCE, PT TOLERATED WELL. CAREGIVE AT BEDSIDE, CALL LT IN REACH.
[2025-05-14 04:05] VITALS: BP 145/55
--- NOTE | 2025-05-14 04:19 | NUR ---
SHIFT SUMMARY: ER ADMIT AT 2058. ALERT TO SELF AND FAMILY. ON RA. NS AT 100 MLS/HR X 1 BAG THEN SALINE LOCK. DIFFICULT TO UNDERSTAND, MUMBLED SPEECH, ANSWERS MOSTLY YES AND NO BY NODDING HEAD. HAV[place]UPAI, WEARS BILAT HEARING AIDS. LIVES ALONE BUT HAS 24 HR CAREGIVERS AND LIVES ON HIS CHILDREN'S PROPERTY. PT IS WELL ATTENDED WITH NEEDS MET. MEDICATED PT FOR PAIN THROUGH THE SHIFT. TRAZODONE GIVEN TO AID IN SLEEPING. MEDS WERE GIVEN CRUSHED IN APPLESAUCE, AND HOB ELEVATED, PT TOLERATED WELL. PT SCREAMS IN PAIN WHEN REPOSITIONED, WITH ANY MOVEMENT. RIGHT SIDE AFFECTED FROM A HX OF A STROKE WITH DYSPHAGIA. ANTONI, CAREGIVER HAS AT BEDSIDE T/O SHIFT. WILL CONTINUE TO PROVIDE CARE UNTIL SHIFT REPORT TO ONCOMING NURSE. BED ALARM ON. CALL LT IN REACH.
[2025-05-14] MEDS ORDERED: FentaNYL Citrate 50 MCG/ML 2 ML Injection IV ONE (05:25)
--- NOTE | 2025-05-14 05:49 | NUR ---
MEDICATED FOR PAIN. GAVE A ONE DOSE OF FENTANYL 25 MCG IV. WILL CONTINUE TO ASSESS FOR PAIN RELIEF. BED ALARM ON. CALL LT IN REACH.
--- NOTE | 2025-05-14 05:58 | NUR ---
PT APPEARS TO BE RESTING WELL AFTER MEDICATING WITH THE ONE TIME DOSE OF 25MCG OF FENTANYL IV. RESP E/U. NS INFUSING WITHOUT DIFFICULTY, ANTONI CAREGIVER AT BEDSIDE. CALL LT IN REACH. BED ALARM ON.
[2025-05-14 06:39] LABS: Hematocrit 30.5 % (37.0-53.0); Hemoglobin 10.0 g/dL (13.5-17.5); Mean Corpuscular HGB Conc 32.8 g/dL (31.5-36.5); Mean Corpuscular Volume 91 fL (80-100); NRBC ABSOLUTE 0.00 K/mm3 (0.00-0.02); NRBC Auto 0.0 /100 WBC (0.0-0.2); Platelet Count 171 K/mm3 (150-400); RDW Coefficient Variation 14.0 % (11.7-14.2); RDW Standard Deviation 46.5 fL (35.1-46.3)
[2025-05-14 06:56] LABS: Anion Gap 6.0 mmol/L (3-11); Blood Urea Nitrogen 41.0 mg/dL (8-24); CO2, Blood 27.0 mmol/L (21-32); Calcium, Blood 7.5 mg/dL (8.5-10.1); Chloride, Blood 113.0 mmol/L (98-108); Creatinine, Blood 2.21 mg/dL (0.60-1.20); Glucose, Blood 179.0 mg/dL (70-99); Magnesium, Blood 2.1 mg/dL (1.6-2.4); Potassium, Blood 4.3 mmol/L (3.5-5.5); Sodium, Blood 142.0 mmol/L (136-145)
[2025-05-14 07:21] VITALS: BP 150/61
[2025-05-14] MEDS ORDERED: Ipratropium/Albuterol SulF 2.5-0.5MG/3 ML Amp INH SCH (09:10)
[2025-05-14] MEDS ORDERED: NS 1,000 ML IV SCH (10:00)
[2025-05-14 15:39] LABS: Hematocrit 30.8 % (37.0-53.0); Hemoglobin 10.1 g/dL (13.5-17.5); IMMATURE RETIC FRACTION 12.3 % (2.3-16.0); RETIC HGB EQUIVALENT 29.7 pg (28.20-36.60); RETICULOCYTE ABSOLUTE 0.0452 M/mm3 (0.0200-0.1100); RETICULOCYTE COUNT PERCENT 1.3 % (0.50-2.50)
[2025-05-14 15:54] VITALS: BP 151/66
[2025-05-14 16:09] LABS: Ferritin, Serum 172.0 ng/mL (26-388); Total Iron Binding Capacity 154.0 ug/dL (250-450)
[2025-05-14] MEDS ORDERED: CefTRIAXone Sodium 1,000 MG in NS 100 ML IV SCH (18:00)
--- NOTE | 2025-05-14 18:03 | NUR ---
SHIFT SUMMARY NO ACUTE CHANGES, A/O TO SELF AND PLACE, AND CAREGIVERS IN ROOM. PAIN MANAGEMENT PER EMAR FOR LEFT RIB FRACTURES. PAINFUL WITH ANY REPOSITIONING. PUREWICK PLACED TO REDUCE TURNING/PAIN. TAKING MEDS CRUSHED IN APPLESAUCE. DNR. ANTIBIOTICS AND INSULIN ADMINISTERED PER ORDERS. NS @ 100 ML/HR RUNNING CURRENTLY - CAN BE SALINE LOCKED ONCE COMPLETED. LIDA CONSULT ENTERED - PT SEES HILTON OUT PATIENT. PT CURRENTLY RESTING IN ROOM WITH BED IN LOWEST POSITION, DAUGHTER AT BEDSIDE. BED ALARM ON - DOES NOT USE CALL LIGHT INDEPENDENTLY.
[2025-05-14] MEDS ORDERED: Darbepoetin (Pharmacy Consult) SC SCH (18:40)
[2025-05-14] MEDS ORDERED: Sod Ferric Gluc Complx/Sucrose 125 MG in NS 100 ML IV SCH (20:00)
[2025-05-14] MEDS ORDERED: Insulin Glargine-Yfgn 100 Unit/mL 3 ML SYR SC SCH (21:00)
[2025-05-14 21:12] VITALS: BP 150/71
[2025-05-15 02:38] VITALS: BP 137/98
[2025-05-15 06:13] LABS: BASOPHILS ABSOLUTE AUTO 0.02 K/mm3 (0.00-0.23); BASOPHILS PERCENT AUTO 0 % (0-2); EOSINOPHILS ABSOLUTE AUTO 0.12 K/mm3 (0.00-0.68); EOSINOPHILS PERCENT AUTO 2 % (0-6); Hematocrit 31.2 % (37.0-53.0); Hemoglobin 10.3 g/dL (13.5-17.5); IMMATURE GRAN ABSOLUTE AUTO 0.05 K/mm3 (0.00-0.10); IMMATURE GRAN PERCENT AUTO 1 % (0-1); LYMPHOCYTES ABSOLUTE AUTO 0.77 K/mm3 (0.84-5.20); LYMPHOCYTES PERCENT AUTO 9 % (21-46); MONOCYTES ABSOLUTE AUTO 0.49 K/mm3 (0.16-1.47); MONOCYTES PERCENT AUTO 6 % (4-13); Mean Corpuscular HGB Conc 33.0 g/dL (31.5-36.5); Mean Corpuscular Volume 91 fL (80-100); NEUTROPHILS ABSOLUTE AUTO 6.77 K/mm3 (1.96-9.15); NEUTROPHILS PERCENT AUTO 82 % (41-73); NRBC ABSOLUTE 0.00 K/mm3 (0.00-0.02); NRBC Auto 0.0 /100 WBC (0.0-0.2); Platelet Count 201 K/mm3 (150-400); RDW Coefficient Variation 13.9 % (11.7-14.2); RDW Standard Deviation 47.1 fL (35.1-46.3)
[2025-05-15 06:42] LABS: Magnesium, Blood 2.2 mg/dL (1.6-2.4); Prostate Specific Antigen 15.600 ng/mL (0.000-4.000)
[2025-05-15 06:43] LABS: Albumin, Blood 2.2 g/dL (3.4-5.0); Anion Gap 8 mmol/L (3-11); Blood Urea Nitrogen 38 mg/dL (8-24); CO2, Blood 26 mmol/L (21-32); Calcium, Blood 7.8 mg/dL (8.5-10.1); Chloride, Blood 112 mmol/L (98-108); Creatinine, Blood 1.99 mg/dL (0.60-1.20); Glucose, Blood 261 mg/dL (70-99); Phosphorus, Blood 4.5 mg/dL (2.5-4.9); Potassium, Blood 4.1 mmol/L (3.5-5.5); Sodium, Blood 142 mmol/L (136-145)
--- NOTE | 2025-05-15 07:17 | NUR ---
BEHAVIOR ANALYST SUMMARY RESPS WERE 26, HR WAS IN THE LOW 100'S, OTHERWISE, VSS. ON BEDREST DUE TO HIGH FALL RISK AND RECENT FALL AT HOME, REPORTED RIB FX/S.. VOICED PAIN WITH REPOSITIONING. TOLERATES MEDS CRUSHED IN APPLESAUCE, SEE MAR FOR PAIN MEDS GIVEN. HOME HEALTH AID AT BEDSIDE MOST OF SHIFT. IV MEDS AND FLUIDS ADMIN. PULLED OFF PUREWICK, REFUSED TO ALLOW IT TO BE PLACED ON. INCONT OF URINE, UNABLE TO OBTAIN URINE FOR 24 HR URINE FOR TESTING FOR UTI. WILL HAVE AM FOLLOW UP. HAS BEEN RESTING QUIETLY AT INTERVALS WITH CALL LIGHT IN REACH. RAILS UP X 3 AND BED IN LOW POSITION FOR SAFETY.
[2025-05-15] MEDS ORDERED: NS 1,000 ML IV SCH (07:25)
[2025-05-15 07:36] VITALS: BP 147/66
[2025-05-15 15:26] VITALS: BP 134/59
--- NOTE | 2025-05-15 16:26 | NUR ---
SHIFT SUMMARY NO ACUTE CHANGES, A/O TO SELF AND PLACE. MORE AWAKE AND ALERT TODAY. INFUSING NS @ 75 ML/HR x1 BAG. INSULIN ADMINISTERED PER ORDERS. TREATED FOR PAIN PER EMAR - STILL PAINFUL WITH MOVEMENT/REPOSITIONING. DUE TO MIXED INCONTINENCE HAVING DIFFICULTY OBTAINING 24 HR URINE SAMPLE. HOSPITALIST AWARE. SMALL BM TODAY. PT CURRENTLY RESTING IN BED WITH BED IN LOWEST POSITION AND CALL LIGHT WITHIN REACH. PRIVATE CAREGIVERS PRESENT WITH PT AT ALL TIMES. USING CALL LIGHT APPROPRIATELY.
[2025-05-15 20:11] VITALS: BP 133/56
[2025-05-16 03:02] VITALS: BP 134/50
--- NOTE | 2025-05-16 03:20 | NUR ---
DEALER ANALYST SUMMARY VSS. STILL ATTEMPTING TO ASK PT TO USE URINAL FOR 24 HR COLLECTION FOR UTI ASSESMENT. PT INTERMITTENTLY USING URINAL AND INCONT AT TIMES. VERBAL RESPONSE WAS MORE COHERENT AT HS WHEN NURSE ASKED QUESTIONS AND ADMIN HIS MEDS. IVF OF NS INFUSING AT 75 ML. CONTINUES TO VERBALIZE PAIN WHEN MOVING IN BED AND WHEN STAFF MOVED HIM FOR BRIEF CHANGES FOR INCONTENENCE. HAS BEEN RESTING QUIETLY IN BETWEEN CHANGES. PRIVATE DUTY ATTENDANT AT BEDSIDE INTERMITTENTLY. CURRENTLY PT RESTING QUIETLY. CALL LIGHT IN REACH, RAILS UP X 2 AND BED IN LOW POSITION FOR SAFETY. WILL CONT TO MONITOR
[2025-05-16 05:42] LABS: Hematocrit 29.4 % (37.0-53.0); Hemoglobin 9.5 g/dL (13.5-17.5)
[2025-05-16 06:25] LABS: Albumin, Blood 2.0 g/dL (3.4-5.0); Anion Gap 7 mmol/L (3-11); Blood Urea Nitrogen 39 mg/dL (8-24); CO2, Blood 24 mmol/L (21-32); Calcium, Blood 7.5 mg/dL (8.5-10.1); Chloride, Blood 111 mmol/L (98-108); Creatinine, Blood 2.23 mg/dL (0.60-1.20); Glucose, Blood 186 mg/dL (70-99); Magnesium, Blood 2.3 mg/dL (1.6-2.4); Phosphorus, Blood 3.8 mg/dL (2.5-4.9); Potassium, Blood 4.0 mmol/L (3.5-5.5); Sodium, Blood 138 mmol/L (136-145)
[2025-05-16] MEDS ORDERED: NS 1,000 ML IV SCH (06:55)
[2025-05-16 07:25] VITALS: BP 146/64
[2025-05-16 12:29] LABS: Protein, Urine Quantitative 246.6 mg/dL (0.0-11.9)
[2025-05-16] MEDS ORDERED: Percocet 5-3251 EACH PO (14:15)
[2025-05-16] MEDS ORDERED: SENN187 PO (14:16)
[2025-05-16] MEDS ORDERED: AMOCLA875 PO (14:16)
[2025-05-16] MEDS ORDERED: VISBIOME 112.51 EACH PO (14:16)
[2025-05-16] MEDS ORDERED: DOCU100 PO (14:17)
[2025-05-16] MEDS ORDERED: FERSU300 PO (14:17)
[2025-05-16] MEDS ORDERED: VITAMIN C125 MG PO (14:17)
[2025-05-16] MEDS ORDERED: AMOCLA500 PO (14:49)
[2025-05-16] MEDS ORDERED: Darbepoetin Alfa in Polysorbat 25 MCG/0.42 ML Syringe SC SCH (16:00)
--- NOTE | 2025-05-16 18:39 | NUR ---
SHIFT SUMMARY: PT A&O X1-2 TO SELF AND FAMILY/CAREGIVERS. FAMILY AT BEDSIDE T/O SHIFT. PT RECEIVED NS @ 50/HR T/O SHIFT. PT C/O PAIN IN L. HIP FROM FRACTURES. MEDICATED PER EMAR. NO ACUTE CHANGES THIS SHIFT. PT SUPPOSED TO D/C @ 1730 VIA GURNEY TRANSPORT. TRANSPORT CALLED AND STATED THEY WOULD BE AT LEAST ANOTHER HOUR PUSHING 1930. WILL INFORM LEAD NETWORK ARCHITECT. CALL LIGHT IN REACH. BED IN LOWEST POSITION.
[2025-05-16 19:07] VITALS: BP 134/73
== END 2025-05-16 19:58 | disposition home health service (06) | DRG 683 ==
LOC: ER 12:28 → MEDS 12:29 → ER 12:29 → MEDS 12:29
PROVIDERS: Internal Medicine Nephrology; Nurse Practitioner Acute Care; Physician Assistant; Student in an Organized Health Care Education/Training Program; ADMIT Student in an Organized Health Care Education/Training Program
DX: N17.9 Acute kidney failure, unspecified (principal); J90 Pleural effusion, not elsewhere classified; S22.42XA Multiple fractures of ribs, left side, initial encounter for closed fracture; N39.0 Urinary tract infection, site not specified; E78.5 Hyperlipidemia, unspecified; Z66 Do not resuscitate; F03.90 Unspecified dementia, unspecified severity, without behavioral disturbance, psychotic disturbance, mood disturbance, and anxiety; D50.9 Iron deficiency anemia, unspecified; I12.9 Hypertensive chronic kidney disease with stage 1 through stage 4 chronic kidney disease, or unspecified chronic kidney disease; E11.22 Type 2 diabetes mellitus with diabetic chronic kidney disease; Z98.49 Cataract extraction status, unspecified eye; D63.1 Anemia in chronic kidney disease; R31.9 Hematuria, unspecified; N40.1 Benign prostatic hyperplasia with lower urinary tract symptoms; B96.20 Unspecified Escherichia coli [E. coli] as the cause of diseases classified elsewhere; N18.4 Chronic kidney disease, stage 4 (severe); Z79.4 Long term (current) use of insulin; Z79.02 Long term (current) use of antithrombotics/antiplatelets; Z79.82 Long term (current) use of aspirin; Z79.899 Other long term (current) drug therapy; Z85.038 Personal history of other malignant neoplasm of large intestine; Z90.89 Acquired absence of other organs; Z95.5 Presence of coronary angioplasty implant and graft; Z98.890 Other specified postprocedural states; Z88.5 Allergy status to narcotic agent; Z88.8 Allergy status to other drugs, medicaments and biological substances; N18.30 Chronic kidney disease, stage 3 unspecified; W18.30XA Fall on same level, unspecified, initial encounter; Y92.009 Unspecified place in unspecified non-institutional (private) residence as the place of occurrence of the external cause
CPT/HCPCS: 36415; 71046; 76770; 80048; 80053; 80069; 81001; 81050; 82550; 82607; 82728; 82746; 82947; 83540; 83550; 83690; 83735; 84156; 85014; 85018; 85025; 85027; 85045; 87077; 87086; 87186; 94640; 94664; 94760; 96361; 96365; 96372; 96375; 97110; 97110-CQ; 97112; 97161; 97530-CQ; 99284-25; A9270; G0103; G0378; J0696; J0881; J1644; J1815; J2405; J2916; J3010; J7030